=== PATIENT | female | born 1990 | race Two or more races ===

== ENCOUNTER 2023-10-21 03:33 | Emergency (ER) | payer OTHER ==
[~2023-10-21] VITALS: Ht 167.6 cm; Wt 86.2 kg
[2023-10-21 03:54] VITALS: TEMP 98.4
[2023-10-21] MEDS ORDERED: KETOROLAC TROMETHAMINE INJ 30 MG/ML VIAL ONE (04:06)
[2023-10-21] MEDS: KETOROLAC TROMETHAMINE INJ 60 MG/2 ML VIAL IM ONE (04:12)
[2023-10-21] MEDS ORDERED: HYDROCODONE/APAP 5/325MG TABLET ONE (04:13)
[2023-10-21] MEDS: HYDROCODONE/APAP 5/325MG TABLET PO ONE (04:22)
[2023-10-21 04:37] LABS: APPEARANCE,URINE CLEAR (CLEAR); BILIRUBIN,URINE NEGATIVE (NEGATIVE); BLOOD, URINE NEGATIVE Ery/uL (NEGATIVE); COLOR,URINE YELLOW (YELLOW); KETONES,URINE NEGATIVE (NEGATIVE); LEUKOCYTE ESTERASE ,URINE NEGATIVE (NEGATIVE); NITRITE, URINE NEGATIVE (NEGATIVE); PH,URINE 5.5 (5.0-8.0); PREGNANCY TEST URINE QUAL NEGATIVE (NEGATIVE); PROTEIN,URINE NEGATIVE (NEGATIVE); UGLUCOSE NEGATIVE (NEGATIVE); UROBILINOGEN,URINE 0.2 EU/dL (0.2)
[2023-10-21 04:46] LABS: AMPHETAMINE, URINE NEGATIVE (NEGATIVE); BARBITURATE, URINE NEGATIVE (NEGATIVE); BENZODIAZEPINE, URINE NEGATIVE (NEGATIVE); CANNABINOID, URINE NEGATIVE (NEGATIVE); COCCAINE, URINE NEGATIVE (NEGATIVE); OPIATE, URINE NEGATIVE (NEGATIVE); PHENCYCLIDINE SCREEN,URINE NEGATIVE (NEGATIVE)
[2023-10-21 05:29] VITALS: BP 121/78; O2SAT 98
== END 2023-10-21 05:34 | disposition home or self-care (01) ==
LOC: ER 03:35
DX: M54.50 Low back pain, unspecified (principal); R10.2 Pelvic and perineal pain; Z88.1 Allergy status to other antibiotic agents
CPT/HCPCS: 72131-TC; 84703-TC; J1885